=== PATIENT | female | born 1970 | race Caucasian/White ===

== ENCOUNTER → 2018-09-28 17:07 | Outpatient (CLI) | payer OTHER, MEDICAID, SELFPAY ==
[2018-09-28 18:07] LABS: Add Manual Diff / Slide Review NO; Basophils Percent Auto 1.1 % (0-2); Eosinophils Percent Auto 1.9 % (2-4); Hematocrit 39.5 % (36-46); Hemoglobin 13.1 g/dL (12.0-16.0); Lymphocytes Percent Auto 35.5 % (25-40); Mean Corpuscular HGB Conc 33.2 % (30-36); Mean Corpuscular Hemoglobin 31.1 PG (26-34); Mean Corpuscular Volume 93.8 fL (80-100); Monocytes Percent Auto 6.1 % (3-14); Neutrophils Absolute Auto 4000 /uL (1500-7000); Neutrophils Percent Auto 55.4 % (50-75); Platelet Count 251 X10^3/uL (150-400); Red Blood Cell Count 4.21 X10^6/uL (4.0-5.2); Red Cell Distribution Width 13.6 % (11.6-14.8); White Blood Cell Count 7.3 X10^3/uL (4.5-11.0)
[2018-09-28 18:29] LABS: HEMOLYSIS < 15 (0-50); Iron 97 ug/dL (37-170)
[2018-09-28 18:31] LABS: Alanine Aminotransferase 40 IU/L (9-52); Albumin 4.9 g/dL (3.5-5.0); Albumin Globulin Ratio 1.6 (1.0-2.8); Alkaline Phosphatase 68 U/L (38-126); Aspartate Aminotransferase 36 IU/L (14-36); BUN Creatinine Ratio 17.8 (6-22); Bilirubin Total 0.3 mg/dL (0.2-1.3); Blood Urea Nitrogen 16 mg/dL (7-17); Calcium 9.9 mg/dL (8.4-10.2); Carbon Dioxide 32 mmol/L (22-32); Chloride 96 mmol/L (98-107); Estimated Glomerular Filt Rate > 60.0 mL/min (>60); Glucose 71 mg/dL (70-100); HEMOLYSIS < 15 (0-50); Potassium 4.1 mmol/L (3.4-5.1); Sodium 137 mmol/L (137-145); Total Protein 7.9 g/dL (6.3-8.2)
[2018-09-28 18:42] LABS: Percent Iron Saturation 34 % (15-50); Total Iron Binding Capacity 289 ug/dL (265-497); Transferrin 246 mg/dL (206-381)
[2018-09-28 18:48] LABS: Free T4, Direct Thyroxine 0.08 ng/dL (0.78-2.19)
[2018-09-28 19:21] LABS: Vitamin B12 626 pg/mL (239-931)
== END ==
PROVIDERS: PCP Physician Assistant; Visit Provider Physician Assistant
DX: E03.9 Hypothyroidism, unspecified (principal); M25.50 Pain in unspecified joint; R53.83 Other fatigue; R63.4 Abnormal weight loss
CPT/HCPCS: 36415; 80053; 82607; 82728; 83540; 83550; 84439; 84443; 85025

== ENCOUNTER → 2018-11-21 11:59 | Outpatient (CLI) | payer OTHER, MEDICAID, SELFPAY ==
[2018-11-21 13:22] LABS: Thyroid Stimulating Hormone 1.09 uIU/mL (0.47-4.68)
== END ==
PROVIDERS: PCP Physician Assistant; Visit Provider Physician Assistant
DX: E03.9 Hypothyroidism, unspecified (principal); R79.89 Other specified abnormal findings of blood chemistry
CPT/HCPCS: 36415; 84443

== ENCOUNTER → 2018-11-24 11:18 | Outpatient (CLI) | payer OTHER, MEDICAID, SELFPAY ==
--- NOTE | 2018-11-24 11:18 | DI.US.S_ITS ---
PROCEDURE: US PELVIC COMPLETE INDICATIONS: Post menopausal bleeding; hx of breast cancer TECHNIQUE: Real-time scanning was performed of the pelvic organs, with image documentation. Additional endovaginal scanning was necessary due to incomplete visualization of the adnexal and endometrial structures by transabdominal scanning. COMPARISON: None. FINDINGS: Transabdominal scanning: Limited scanning through the kidneys shows no hydronephrosis. No pathologic free abdominal or pelvic fluid. Within the right posterior myometrium a 1.1 x 1.8 x 2.0 cm mildly heterogeneous ovoid mass consistent with fibroid is noted. Endovaginal scanning: Uterus: Uterus is normal in size at 3.8 x 5.6 x 7.8 cm, anteverted. The endometrium measures 4.7 mm in combined thickness. Within the endometrial lining area there is a finding of low-level internal echoes that appear homogeneous, without internal vascularity. A discrete mass is not associated. Ovaries: Right ovary measures 2.4 x 0.8 x 1.0 and the left measures 2.2 x 1.3 x 2.1 cm with what appears to be a left ovarian cyst measuring 0.9 x 1.5 x 2.1 cm. IMPRESSION: The endometrial lining thickness of 5 mm is complicated by what appears to be low-level internal echoes throughout the endometrial space, without visualized polypoid mass, or internal vascularity. This is potentially unusually homogeneous debris within the endometrial canal is given the history of postmenopausal bleeding gynecological consultation and consideration of biopsy is recommended. Incidental lobe is made of what appears to be a posterior right-sided 2.0 cm maximal dimension fibroid. Dictated by: Eric Mcelroy M.D. on 11/24/2018 at 12:23 Approved by: Eric Mcelroy M.D. on 11/24/2018 at 12:34
== END ==
PROVIDERS: PCP Physician Assistant; Visit Provider Physician Assistant
DX: N95.0 Postmenopausal bleeding (principal); R10.2 Pelvic and perineal pain; Z85.3 Personal history of malignant neoplasm of breast
CPT/HCPCS: 76856

== ENCOUNTER 2019-01-25 06:23 | Day surgery (SDC) | payer OTHER, SELFPAY ==
[2019-01-09 07:43] VITALS: BMI 19.6
[2019-01-25] VITALS (10 sets, daily range): BP systolic 85–117; BP diastolic 45–77; PULSE 44–53; RESP 10–18; TEMP 36.2–36.6; O2SAT 90–100; BMI 19.6
--- NOTE | 2019-01-25 | PATH_ITS ---
[facility] Accession Number: [id number] . 01 Material submitted: . endometrium - ENDOMETRIAL CURRETTINGS . 02 Diagnosis: Endometrial Curettings: Very scant portions of endometrial glandular epithelium. Please see comment. Avulsed portions of squamous mucosa with reactive features; negative for squamous dysplasia and malignancy. [facility]/01/29/2019 . 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 Additional sampling could be considered, if clinically appropriate. There is no evidence of glandular hyperplasia, cytologic atypia or malignancy in these scant tissue fragments. . 02 Electronically signed: . Taina Craig MD, Pathologist NPI- [id number] . 01 Gross description: . ENDOMETRIAL CURRETTINGS: Received in formalin are minute fragments of mucoid and hemorrhagic material measuring 0.2 x 0.2 x 0.1 cm in aggregate. Submitted in toto in 1 cassette. /CKI /CKI . 02 Pathologist provided ICD-10: N85.00 . 02 CPT . 869957 Performed at: 01 [facility] [address], [place], [place] [id number] MD Scooby Carmona MD Phone: [phone] Performed at: 02 [facility] [address] [place], [place] [id number] MD Carmina Tong MD Phone: [phone]
[2019-01-25] MEDS: LACTATED RINGERS 1,000 ML 42 ML IV (07:43)
--- NOTE | 2019-01-25 07:45 | PM.PREOP ---
Pre-operative Note Interval Note History & Physical reviewed/Exam performed by Physician: Yes Changes to H&P: No
--- NOTE | 2019-01-25 07:46 | PM.HP.1 ---
History of Present Illness Date Patient Seen: 01/25/19 Time Patient Seen: 07:46 Chief complaint: [id number] Narrative: Patient is a 48-year-old with postmenopausal bleeding here for a D&C hysteroscopy Patient History Medical History (Updated 01/24/19 @ 12:31 by Eleonora Camacho PA-C) Acne (Chronic ~1984) Anxiety (Chronic ~2015) Atrial fibrillation (Chronic ~2006) Bipolar disorder (Chronic) Breast cancer (Chronic ~2013) Chronic back pain (Chronic ~2000) Headache (Chronic ~2014) History of urinary incontinence (Chronic ~2017) Hypothyroidism (Chronic ~2004) Irritable bowel syndrome (Chronic ~2000) Post traumatic stress disorder (PTSD) (Chronic ~2014) Seasonal allergies (Chronic ~1981) Shoulder pain (Chronic ~2014) Vision disorder (Chronic) Surgical History (Updated 10/07/18 @ 20:26 by Emmy Romero) Anesthesia (Resolved) History of partial mastectomy (Resolved ~06/26/16) History of repair of rotator cuff (Resolved ~04/2014) History of tubal ligation (Resolved ~08/26/95) Family History (Updated 10/07/18 @ 20:34 by Emmy Romero) Father Cancer Mother Atrial fibrillation Heart disease Brother Heart disease Hypertension Stroke Sister Heart disease Mental health problem Grandmother Heart disease Grandmother No problems noted. Social History household members: spouse Smoking Status: Current every day smoker Tobacco: How many years used: 32 quit status: considering quitting second hand exposure: Yes alcohol intake: former substance use type: marijuana Family & Social History Family History (Updated 10/07/18 @ 20:34 by Emmy Romero) Father Cancer Mother Atrial fibrillation Heart disease Brother Heart disease Hypertension Stroke Sister Heart disease Mental health problem Grandmother Heart disease Grandmother No problems noted. Social History: household members spouse Tobacco & Substance use: Smoking Status Current every day smoker alcohol intake former Substance Use Type marijuana Meds Home Medications Medication Instructions Recorded Confirmed Type Supplement List (Scanned 09/28/18) PO 09/28/18 01/24/19 History Synthroid 112 mcg tablet 112 mcg PO DAILY #45 tab NS 09/29/18 01/25/19 Rx benzoyl peroxide 4 % topical 1 applictn TOP DAILY #204 gram 10/04/18 01/24/19 Rx cleanser esomeprazole magnesium 20 mg 20 mg PO DAILY PRN #30 cap 01/24/19 Rx capsule,delayed release tramadol 50 mg tablet See Rx Instructions PO TID PRN #45 01/24/19 01/25/19 Rx tab Allergies Allergy/AdvReac Type Severity Reaction Status Date / Time iodine Allergy Intermediate Swollen Verified 01/24/19 12:02 gums and skin Exam Vital Signs (past 8 hours): - 01/25/19 07:15 Temperature 97.6 F Pulse Rate 52 L Respiratory Rate 16 Blood Pressure 103/77 Pulse Oximetry 100 Oxygen Delivery Method Room Air Narrative Exam Narrative: HEENT: No thyromegaly, no anterior cervical or supraclavicular lymphadenopathy. Lungs:Clear to auscultation bilaterally, no wheezes. Cardiovascular: Regular rate and rhythm, no murmurs, rubs, or gallops. Abdomen: Well-healed infraumbilical scar. No hepatosplenomegaly. No masses palpable. External genitalia: Normal Vagina: Normal Cervix: Normal Bimanual exam: 6 Week size uterus. Mobile. Rectal: No masses. Assessment & Plan Assessment & Plan narrative: Assessment: 48-year-old with postmenopausal bleeding Plan: D&C hysteroscopy The risks, benefits, and alternatives to the procedure were explained to the patient. The risks including bleeding, infection, and uterine perforation. She understands these risks and agrees to proceed. A full PAR-Q was held and consent form was signed Time Spent With Patient Time with patient: less than 15 minutes
--- NOTE | 2019-01-25 08:20 | SUR.OPER ---
Lithotomy on padded OR bed, head on pillow, arms secured on padded arm boards at <90 degrees abduction. Legs secured in padded yellow fins stirrups.
[2019-01-25] MEDS: KETOROLAC 30 MG/ML VIAL IV (08:57)
[2019-01-25] MEDS: HYDROCODONE/ACET 5/325 TABLET 1 TAB PO (09:07)
--- NOTE | 2019-01-25 09:15 | SUR.PHASEI ---
Pt has bradycardia (HR 45-50) and respirations 10-12, therefore no IV narcotics given, IV toradol and PO Foster given. Pt said she agreed with this plan. Meanwhile, hot blankets were applied to her abdomen.
--- NOTE | 2019-01-25 09:51 | SUR.PHASEII ---
tolerating coffee, taling with friend
--- NOTE | 2019-01-25 15:04 | PM.GYNOP.1 ---
Operative Date/Time/Diagnoses Date of procedure: 01/25/19 Time of procedure: 08:50 Pre-op diagnosis: Postmenopausal bleeding History of breast cancer Post-op diagnosis: same Procedure: Procedures Operation Date: 01/25/19 07:45 Actual Procedures Side Surgeon p Hysteroscopy D&C Adeline Rai MD Indications: Postmenopausal bleeding History of breast cancer Surgeon: Adeline Rai Anesthesia Type: General (LMA) Operative Notes Findings: Six week size anteverted uterus Both fallopian tube ostia observed No polyps or fibroids Closure Type: not applicable Specimen(s): endometrial curettings Estimated blood loss (mL): 5 Blood products transfused: none Procedure in detail: After informed consent was obtained, the patient was taken to the operating room where she was placed in the dorsal supine position. After adequate LMA general anesthesia was achieved, she was placed in the dorsal lithotomy position, and prepped and draped in the usual sterile fashion. A bivalve speculum was placed into the vagina and the anterior lip of the cervix grasped with a single-tooth tenaculum. Cervical os was sequentially dilated to the # 7 Hegar dilator. The hysteroscope passed easily into the endometrial cavity. Both fallopian tube ostia were observed. There were no polyps or fibroids visualized. The hysteroscope was removed. Gentle sharp curettage was performed yielding a small amount of endometrial curettings. The curette was removed from the uterus. The single-tooth tenaculum was removed from the anterior lip of the cervix. The bivalve speculum was removed from the vagina. Sponge, lap, and instrument counts were correct x2. The patient tolerated the procedure well, and was taken to PACU in stable condition. Complications: none Post-operative Condition: stable Disposition: PACU Plan for aftercare: Home after recovery
[2023-04-12 10:52] VITALS: BMI 23.2
== END 2019-01-25 10:11 | disposition home or self-care (01) ==
PROVIDERS: PCP Physician Assistant; Visit Provider Obstetrics & Gynecology
PROC: 0UDB8ZZ Extraction of Endometrium, Via Natural or Artificial Opening Endoscopic (ICD-10-PCS; CPT 58558; principal; 2019-01-25 07:45)
DX: N85.00 Endometrial hyperplasia, unspecified (principal); N95.0 Postmenopausal bleeding; F41.9 Anxiety disorder, unspecified; I48.91 Unspecified atrial fibrillation
CPT/HCPCS: 58558; J1100; J1885; J2250; J2405; J2704; J3010

== ENCOUNTER → 2019-03-12 08:30 | Outpatient (CLI) | payer OTHER, SELFPAY ==
--- NOTE | 2019-03-12 08:31 | DI.US.S_ITS ---
LIMITED ULTRASOUND OF RIGHT BREAST: 03/12/2019 CLINICAL: Palpable right breast lump. Comparison is made to exams dated: 03/12/2019 mammogram - [facility], 05/07/2016 mammogram, and 01/29/2015 breast MRI - [facility]. Color flow and real-time ultrasound of the right breast 5-6 o'clock region were performed. Caputo scale images of the real-time examination were reviewed. There is 0.4 cm x 0.3 cm x 0.4 cm wider than tall, oval cyst in the right breast at 5 o'clock middle depth. This oval cyst displays posterior acoustic enhancement. This correlates as palpated and with mammography findings. Color flow imaging demonstrates that there is no increase in vascularity. IMPRESSION: PROBABLY BENIGN The 0.4 cm x 0.3 cm x 0.4 cm cyst in the right breast most likely is a complicated cyst or a sebaceous cyst and is probably benign. A follow-up ultrasound in 6 months is recommended to demonstrate stability. Findings and recommendations were conveyed to the patient at time of exam. This exam was interpreted at Station ID: [id number]. Electronically Signed By: Arin calvillo/:03/12/2019 10:23:09 letter sent: Followup Recommended Ultrasound BI-RADS: 3 Probably benign
--- NOTE | 2019-03-12 08:31 | DI.MG.S_ITS ---
UNILATERAL RIGHT DIGITAL DIAGNOSTIC MAMMOGRAM 3D/2D POST MASTECTOMY: 03/12/2019 CLINICAL: Right breast lump. Comparison is made to exams dated: 05/07/2016 mammogram, 01/21/2015 mammogram, 01/07/2015 mammogram, and 10/26/2012 mammogram - [facility]. The tissue of right breast is extremely dense, which lowers the sensitivity of mammography. There is a 3 mm round asymmetry with an obscured margin in the right breast at 5 o'clock middle depth. This correlates as palpated. No other significant masses or calcifications are seen in the right breast. IMPRESSION: INCOMPLETE: NEEDS ADDITIONAL IMAGING EVALUATION The 3 mm round asymmetry in the right breast is indeterminate. An ultrasound is recommended. This was performed immediately following this exam. This exam was interpreted at Station ID: [id number]. NOTE: For mammograms, a report in lay terms will be sent to the patient. Approximately 15% of breast malignancies will not be visualized mammographically. In the management of a palpable breast mass, a negative mammogram must not discourage biopsy of a clinically suspicious lesion. Electronically Signed By: Arin calvillo/:03/12/2019 09:10:25 ACR BI-RADS Category 0: Incomplete [id number]
== END ==
PROVIDERS: PCP Physician Assistant; Visit Provider Physician Assistant
DX: R92.8 Other abnormal and inconclusive findings on diagnostic imaging of breast (principal); N60.01 Solitary cyst of right breast
CPT/HCPCS: 76642; 77065; G0279

== ENCOUNTER → 2019-04-09 07:19 | Outpatient (CLI) | payer OTHER, SELFPAY ==
[2019-04-09 08:34] LABS: Cholesterol 172 mg/dL (140-199); HDL Cholesterol 68 mg/dL (40-60); LDL Cholesterol Calculated 91 mg/dL (<100); Triglycerides 64 mg/dL (35-150)
== END ==
PROVIDERS: PCP Physician Assistant; Visit Provider Physician Assistant
DX: Z13.220 Encounter for screening for lipoid disorders (principal); Z13.6 Encounter for screening for cardiovascular disorders
CPT/HCPCS: 36415; 80061

== ENCOUNTER → 2019-05-13 17:42 | Outpatient (CLI) | payer OTHER, SELFPAY ==
--- NOTE | 2019-05-13 17:44 | DI.RAD.S_ITS ---
PROCEDURE: XR LUMBAR SPINE 2-3V INDICATIONS: Low back pain with daily left labial/inguinal pain; TECHNIQUE: 3 views of the lumbar spine were acquired. COMPARISON: None. FINDINGS: Bones: 5 [id number] vertebrae are present. There is normal bony alignment. No vertebral body compression fractures. No suspicious bony lesions. Soft tissues: Overlying bowel gas pattern is normal. No suspicious soft tissue calcifications. IMPRESSION: Normal lumbar spine. Dictated by: Arin Monreal M.D. on 05/13/2019 at 19:11 Approved by: Arin Monreal M.D. on 05/13/2019 at 19:19
== END ==
PROVIDERS: PCP Physician Assistant; Visit Provider Physician Assistant
DX: M54.5 Low back pain (principal); R10.32 Left lower quadrant pain
CPT/HCPCS: 72100

== ENCOUNTER → 2019-10-11 08:22 | Outpatient (CLI) | payer SELFPAY ==
[2019-10-11 09:10] LABS: Alanine Aminotransferase 16 IU/L (<35); Albumin 4.9 g/dL (3.5-5.0); Albumin Globulin Ratio 1.5 (1.0-2.8); Alkaline Phosphatase 85 U/L (38-126); Aspartate Aminotransferase 21 IU/L (14-36); BUN Creatinine Ratio 28.8 (6-22); Bilirubin Total 0.3 mg/dL (0.2-1.3); Blood Urea Nitrogen 23 mg/dL (7-17); Calcium 10.3 mg/dL (8.4-10.2); Carbon Dioxide 29 mmol/L (22-32); Chloride 101 mmol/L (98-107); Cholesterol 227 mg/dL (140-199); Estimated Glomerular Filt Rate > 60.0 mL/min (>60); Globulin 3.2 g/dL (1.7-4.1); Glucose 95 mg/dL (70-100); HDL Cholesterol 87 mg/dL (40-60); HEMOLYSIS 17 (0-50); LDL Cholesterol Calculated 125 mg/dL (<100); Potassium 4.5 mmol/L (3.4-5.1); Sodium 140 mmol/L (137-145); Total Protein 8.1 g/dL (6.3-8.2); Triglycerides 76 mg/dL (35-150)
[2019-10-11 09:40] LABS: Thyroid Stimulating Hormone 1.65 uIU/mL (0.47-4.68)
== END ==
PROVIDERS: PCP Physician Assistant; Visit Provider Physician Assistant
DX: E03.9 Hypothyroidism, unspecified (principal); Z13.220 Encounter for screening for lipoid disorders; Z13.6 Encounter for screening for cardiovascular disorders
CPT/HCPCS: 36415; 80053; 80061; 84443

== ENCOUNTER 2020-01-09 09:59 | Emergency (ER) | payer OTHER, SELFPAY ==
[2020-01-09 10:00] VITALS: BP 143/82; PULSE 101; RESP 18; TEMP 36.8; O2SAT 96
[2020-01-09] MEDS: MAGNESIUM HYDROXIDE 30 ML UDC PO (10:27)
[2020-01-09] MEDS: LIDOCAINE VISCOUS 2% 15 ML SOLUTION PO (10:27)
--- NOTE | 2020-01-09 10:39 | ED.DENTAL ---
HPI - Dental/Oral General Chief complaint: Dental/Oral Stated complaint: Tooth broke rt side Time Seen by Provider: 01/09/20 10:10 Source: patient Mode of arrival: Ambulatory Limitations: no limitations History of Present Illness HPI Narrative: Patient complains of dental pain at tooth 28. This is chronic. Ongoing for 5 years. Worsening in the past 2 weeks. Patient is a smoker. No history of diabetes. No drooling. No tongue elevation. No malocclusion or trismus. Teeth map: 1. Chronic fracture of tooth. No surrounding edema erythema. Mild tenderness to touch. No gum palpable abscess. No cheek or oral swelling. Duration: constant Severity: moderate Exacerbating factors: chewing and drinking fluids Context: history of dental caries Related Data Home Medications Medication Instructions Recorded Confirmed Supplement List (Scanned 09/28/18) PO 09/28/18 03/20/19 estradiol 1 vaginalrin VAG [id number] 03/20/19 03/20/19 Previous Rx's Medication Instructions Recorded esomeprazole magnesium 20 mg 20 mg PO DAILY PRN #30 cap 06/15/19 capsule,delayed release Synthroid 112 mcg tablet See Rx Instructions .ROUTE 09/27/19 .COMPLEX #30 tab NS tramadol 50 mg tablet 50 mg PO BID PRN #60 tab 11/28/19 ibuprofen 600 mg PO Q6H PRN #24 tab 01/09/20 penicillin V potassium 500 mg PO QID #28 tab 01/09/20 Allergies Allergy/AdvReac Type Severity Reaction Status Date / Time iodine Allergy Intermediate Swollen Unverified 05/14/19 13:24 gums and skin Review of Systems Review of Systems Narrative: GENERAL: Denies chills, fatigue, malaise, fever, sweats. HEENT: Denies sinus pain, ear pain, sore throat, difficulty swallowing, dizziness. Complains of toothache RESPIRATORY: Denies dyspnea, cough, wheezing, hemoptysis, sputum. CARDIOVASCULAR: Denies chest pain, palpitations, orthopnea, edema, GASTROINTESTINAL: Denies nausea, vomiting, abdominal pain, diarrhea, constipation, melena. MUSCULOSKELETAL: denies weakness, joint pain, or bony pain SKIN: Denies rash, skin lesions, or other NEUROLOGIC: Denies weakness, headache, numbness, change in speech, confusion, seizures, incoordination. PSYCHIATRIC: No concerning psychosocial issues. 12 point review of systems is negative except for those stated above Patient History Medical History Acne (Chronic ~1984) Anxiety (Chronic ~2015) Atrial fibrillation (Chronic ~2006) Bipolar disorder (Chronic) Breast cancer (Chronic ~2013) Chronic back pain (Chronic ~2000) Headache (Chronic ~2014) History of urinary incontinence (Chronic ~2017) Hypothyroidism (Chronic ~2004) Irritable bowel syndrome (Chronic ~2000) Post traumatic stress disorder (PTSD) (Chronic ~2014) Seasonal allergies (Chronic ~1981) Shoulder pain (Chronic ~2014) Vision disorder (Chronic) Surgical History Anesthesia (Resolved) History of partial mastectomy (Resolved ~06/26/16) History of repair of rotator cuff (Resolved ~04/2014) History of tubal ligation (Resolved ~08/26/95) Family History Father Cancer Mother Atrial fibrillation Heart disease Brother Heart disease Hypertension Stroke Sister Heart disease Mental health problem Grandmother Heart disease Grandmother No problems noted. Social History household members: spouse Smoking Status: Current every day smoker Tobacco: How many years used: 32 quit status: considering quitting second hand exposure: Yes alcohol intake: former substance use type: marijuana Smoking Status: Current every day smoker Substance Use Type: marijuana Exam Narrative Exam Narrative: Mild tenderness to tooth 28. No surrounding gum erythema or edema. No palpable abscess. No cheek erythema or edema. No trismus or malocclusion. No drooling not toxic. Not distended. No acute distress. Initial Vital Signs Initial Vital Signs: Vital Signs Temperature 98.2 F 01/09/20 10:00 Pulse Rate 101 H 01/09/20 10:00 Respiratory Rate 18 01/09/20 10:00 Blood Pressure 143/82 H 01/09/20 10:00 Pulse Oximetry 96 01/09/20 10:00 HENMT Mouth: lip normal, tongue normal, No drooling, No malodorous breath, No muffled voice, No abnormal TMJ, No trismus and No restricted motion Teeth and gingiva: gingiva normal, poor dentition and other (Mild tenderness to tooth 28. There is no surrounding gum edema. ) Course Course Course Narrative: Dental ball and pen VK given here. Orders Ordered: Discontinued Medications Lidocaine HCl (Viscous Lidocaine 2%) 15 ml PO NOW ONE Stop: 01/09/20 10:19 Last Admin: 01/09/20 10:27 Dose: 15 ml Documented by: BTONER Magnesium Hydroxide (Milk Of Magnesia) 30 ml PO NOW ONE Stop: 01/09/20 10:19 Last Admin: 01/09/20 10:27 Dose: 30 ml Documented by: BTONER Penicillin V Potassium (Veetids) 500 mg PO NOW ONE Stop: 01/09/20 10:34 Last Admin: 01/09/20 11:21 Dose: 500 mg Documented by: BTONER Vital Signs Vital signs: Vital Signs - 8 hr 01/09/20 10:00 Temperature 98.2 F Pulse Rate 101 H Respiratory Rate 18 Blood Pressure 143/82 H Pulse Oximetry 96 MDM - Dental/Oral Differential Diagnosis Differential diagnosis: Likely dental caries and fracture of tooth Medical Records Attestation: I reviewed the patient's medical records. Discharge Plan Departure Patient Disposition: Home Clinical Impression: Dental caries, Toothache Instructions: Tooth Decay, How to Quit Smoking, Tooth Fracture Activity Restrictions/Additional Instructions: Called provided office today to be seen within next 2 weeks. Stop smoking. Return if worse. Remove dental ball in 2 hours. Prescriptions: New penicillin V potassium 500 mg tablet 500 mg PO QID Qty: 28 RF: 0 ibuprofen 600 mg tablet 600 mg PO Q6H PRN (Reason: fever or pain) Qty: 24 RF: 0 No Action Supplement List (Scanned 09/28/18) PO RF: 0 esomeprazole magnesium 20 mg capsule,delayed release(DR/EC) 20 mg PO DAILY PRN (Reason: reflux) Qty: 30 RF: 1 levothyroxine [Synthroid] 112 mcg tablet See Rx Instructions .ROUTE .COMPLEX Qty: 30 RF: 0 tramadol 50 mg tablet 50 mg PO BID PRN (Reason: pain) Qty: 60 RF: 0 Estring 2 mg (7.5 mcg /24 hour) ring 1 vaginalrin VAG [id number] RF: 0 Referrals: Lev Solomon DMD [Physician] - Eleonora Camacho PA-C [Primary Care Provider] -
[2020-01-09] MEDS: PENICILLIN VK 250 MG TABLET 500 MG PO (11:21)
--- NOTE | 2020-01-09 12:33 | PC.NURSE ---
removed medicated cotton from pt mouth at 1145.
[2020-01-09 12:35] VITALS: BP 127/70; PULSE 88; RESP 16; O2SAT 100
== END 2020-01-09 12:35 | disposition home or self-care (01) ==
PROVIDERS: Emergency Provider Emergency Medicine; PCP Physician Assistant
DX: K02.9 Dental caries, unspecified (principal); K08.89 Other specified disorders of teeth and supporting structures
CPT/HCPCS: 99283

== ENCOUNTER → 2020-10-24 10:51 | Outpatient (CLI) | payer OTHER, SELFPAY ==
--- NOTE | 2020-10-24 10:54 | DI.RAD.S_ITS ---
PROCEDURE: XR LUMBAR SPINE 2-3V INDICATIONS: Progressive lower back pain TECHNIQUE: 3 views of the lumbar spine were acquired. COMPARISON: [facility], CR, XR LUMBAR SPINE 2-3V, 05/13/2019, 17:46. FINDINGS: Bones: 5 [id number] vertebrae are present. There is normal bony alignment. No vertebral body compression fractures. No suspicious bony lesions. Soft tissues: Overlying bowel gas pattern is normal. No suspicious soft tissue calcifications. IMPRESSION: No trauma found, facet osteoarthritis appears mild at L4-5 and L5-S1. Note: Over the lower left lung the technologist reported that rocks were being carried in garment. Dictated by: Eric Mcelroy M.D. on 10/24/2020 at 12:51 Approved by: Eric Mcelroy M.D. on 10/24/2020 at 12:53
[2020-10-24 11:26] LABS: Add Manual Diff / Slide Review NO; Basophils Absolute Auto 0 /uL (0-100); Basophils Percent Auto 0.7 % (0-2); Eosinophils Absolute Auto 100 /uL (0-450); Eosinophils Percent Auto 2.4 % (2-4); Hematocrit 38.9 % (36-46); Hemoglobin 13.1 g/dL (12.0-16.0); Lymphocytes Absolute Auto 1700 /uL (1100-4500); Lymphocytes Percent Auto 37.5 % (25-40); Mean Corpuscular HGB Conc 33.5 % (30-36); Mean Corpuscular Hemoglobin 30.4 PG (26-34); Mean Corpuscular Volume 90.8 fL (80-100); Monocytes Absolute Auto 400 /uL (0-900); Neutrophils Absolute Auto 2300 /uL (1500-7000); Neutrophils Percent Auto 51.4 % (50-75); Platelet Count 235 X10^3/uL (150-400); Red Blood Cell Count 4.29 X10^6/uL (4.0-5.2); Red Cell Distribution Width 13.2 % (11.6-14.8); White Blood Cell Count 4.4 X10^3/uL (4.5-11.0)
[2020-10-24 11:38] LABS: Alanine Aminotransferase 19 IU/L (<35); Albumin 4.7 g/dL (3.5-5.0); Albumin Globulin Ratio 1.5 (1.0-2.8); Alkaline Phosphatase 83 U/L (38-126); Aspartate Aminotransferase 26 IU/L (14-36); BUN Creatinine Ratio 25.8 (6-22); Bilirubin Total 0.2 mg/dL (0.2-1.3); Blood Urea Nitrogen 17 mg/dL (7-17); Calcium 9.6 mg/dL (8.4-10.2); Carbon Dioxide 34 mmol/L (22-32); Chloride 104 mmol/L (98-107); Estimated Glomerular Filt Rate > 60.0 mL/min (>60); Globulin 3.2 g/dL (1.7-4.1); Glucose 86 mg/dL (70-100); HEMOLYSIS < 15 (0-50); Potassium 4.5 mmol/L (3.4-5.1); Sodium 140 mmol/L (137-145); Total Protein 7.9 g/dL (6.3-8.2)
[2020-10-24 12:15] LABS: Free T4, Direct Thyroxine 1.49 ng/dL (0.78-2.19)
[2020-10-24 12:29] LABS: Thyroid Stimulating Hormone 0.022 uIU/mL (0.47-4.68)
== END ==
PROVIDERS: PCP Family Medicine; Referring Provider Family Medicine; Visit Provider Family Medicine
DX: M54.5 Low back pain (principal); E03.9 Hypothyroidism, unspecified; R00.2 Palpitations; G89.29 Other chronic pain
CPT/HCPCS: 36415; 72100; 80053; 84439; 84443; 85025

== ENCOUNTER → 2020-10-29 09:47 | Outpatient (CLI) | payer OTHER, SELFPAY ==
--- NOTE | 2020-11-26 11:14 | P.HOLT.S_ITS ---
[employer] Report Referral & Results Date Patient Seen: 10/29/20 Requesting provider: Johny Dewitt Indication: Palpitations Duration of monitoring (days): 12 Diary information: There 10 patient triggered events and 10 patient diary entries All 20 of these patient events were associated with (within 45 seconds) sinus rhythm, PVCs, PACs, and SVT Data: Minimum heart rate identified was 37 beats per minute at 06:13 a.m. on 11/06/2020 Maximum sinus heart rate was 147 beats per minute at 07:25 on 11/03/2020 Maximum overall heart rate was 171 beats per minute at 17:51 on 10/30/2020 during a 5 beat run of SVT Less than 1% of identified beats rather ventricular supraventricular ectopic in origin There were 4 runs of SVT the fastest being the 5 run episode listed above the longest lasting 12 beats at a rate of 125 beats per minute. Impression: This study demonstrates rare PVCs rare PACs and very rare episodes of SVT very brief in duration. No correlation with any one particular dysrhythmia as a source of possible sense of palpitations was identified on this study as patient patient events were associated with a variety of dysrhythmias as above. Clinical correlation suggested
== END ==
PROVIDERS: PCP Family Medicine; Referring Provider Family Medicine; Visit Provider Family Medicine
DX: R00.2 Palpitations (principal)
CPT/HCPCS: 93246; 93248

== ENCOUNTER → 2020-12-17 14:35 | Outpatient (CLI) | payer OTHER, SELFPAY ==
--- NOTE | 2020-12-17 14:37 | DI.RAD.S_ITS ---
PROCEDURE: XR FOOT LT MIN 3V INDICATIONS: Painful left foot TECHNIQUE: 3 views of the foot were acquired. COMPARISON: None. FINDINGS: Bones: No fractures or dislocations. No suspicious bony lesions. Soft tissues: No tibiotalar joint effusion. Achilles tendon appears normal. IMPRESSION: No trauma. Dictated by: Eric Mcelroy M.D. on 12/17/2020 at 15:29 Approved by: Eric Mcelroy M.D. on 12/17/2020 at 15:29
== END ==
PROVIDERS: PCP Family Medicine; Referring Provider Family Medicine; Visit Provider Family Medicine
DX: S90.122A Contusion of left lesser toe(s) without damage to nail, initial encounter (principal); S90.32XA Contusion of left foot, initial encounter; X58.XXXA Exposure to other specified factors, initial encounter
CPT/HCPCS: 73630

== ENCOUNTER → 2021-05-01 19:32 | Outpatient (CLI) | payer OTHER, SELFPAY ==
[2021-05-01 20:44] LABS: COVID19 -Nasal RAPID Negative (Negative)
== END ==
PROVIDERS: PCP Family Medicine; Visit Provider Physician Assistant
DX: J31.2 Chronic pharyngitis (principal); Z20.822 Contact with and (suspected) exposure to COVID-19
CPT/HCPCS: 87070; 87635

== ENCOUNTER → 2021-07-14 13:31 | Outpatient (CLI) | payer OTHER, SELFPAY ==
--- NOTE | 2021-07-14 13:35 | DI.RAD.S_ITS ---
PROCEDURE: XR LUMBAR SPINE 2-3V INDICATIONS: Progressive lower back pain after fall TECHNIQUE: 2 views of the lumbar spine were acquired. COMPARISON: [facility], CR, XR LUMBAR SPINE 2-3V, 10/24/2020, 12:07. FINDINGS: Bones: 5 [id number] vertebrae are present. Mild facet arthrosis at L5-S1. There is normal bony alignment. No vertebral body compression fractures. No suspicious bony lesions. Soft tissues: Overlying bowel gas pattern is normal. No suspicious soft tissue calcifications. IMPRESSION: No acute osseous abnormality. Dictated by: Dmitry Felder M.D. on 07/14/2021 at 15:00 Approved by: Dmitry Felder M.D. on 07/14/2021 at 15:01
[2021-07-14 14:56] LABS: Alanine Aminotransferase 43 IU/L (<35); Albumin 4.4 g/dL (3.5-5.0); Albumin Globulin Ratio 1.7 (1.0-2.8); Alkaline Phosphatase 83 U/L (38-126); Aspartate Aminotransferase 39 IU/L (14-36); BUN Creatinine Ratio 18.1 (6-22); Bilirubin Total 0.1 mg/dL (0.2-1.3); Blood Urea Nitrogen 15 mg/dL (7-17); Calcium 9.5 mg/dL (8.4-10.2); Carbon Dioxide 31 mmol/L (22-32); Chloride 101 mmol/L (98-107); Estimated Glomerular Filt Rate > 60.0 mL/min (>60); Globulin 2.6 g/dL (1.7-4.1); Glucose 97 mg/dL (70-100); HEMOLYSIS < 15 (0-50); Potassium 4.3 mmol/L (3.4-5.1); Sodium 140 mmol/L (137-145)
[2021-07-14 15:24] LABS: Thyroid Stimulating Hormone 0.276 uIU/mL (0.47-4.68)
== END ==
PROVIDERS: PCP Family Medicine; Referring Provider Family Medicine; Visit Provider Family Medicine
DX: M54.50 Low back pain, unspecified (principal); E03.9 Hypothyroidism, unspecified
CPT/HCPCS: 36415; 72100; 80053; 84439; 84443

== ENCOUNTER → 2021-12-25 17:57 | Outpatient (CLI) | payer OTHER, SELFPAY ==
--- NOTE | 2021-12-25 17:58 | DI.MRI.S_ITS ---
PROCEDURE: MR LUMBAR SPINE WO CON INDICATIONS: Low back pain with left-sided radiculopathy. TECHNIQUE: Noncontrast sagittal T1 spin echo and T2 fast echo, sagittal STIR, and T2 fast spin echo through the lumbar spine. In cases with scoliosis, additional coronal T2 fast spin echo may be performed. COMPARISON: None. FINDINGS: Image quality: Excellent. Alignment and Curvature: There is normal bony alignment. Bone Marrow: Marrow is of normal overall signal. No acute vertebral body compression fractures. Spinal Cord: Conus medullaris terminates at the L1 level. Visualized cord demonstrates normal signal and size. Paraspinous Soft Tissues: No paravertebral masses. At the disc levels, there is no disc bulge, central or foraminal stenosis. IMPRESSION: Normal MRI of the lumbar spine Approved by: Trenton Escobar M.D. on 12/26/2021 at 17:28
== END ==
PROVIDERS: PCP Family Medicine; Referring Provider Family Medicine; Visit Provider Family Medicine
DX: M43.06 Spondylolysis, lumbar region (principal)
CPT/HCPCS: 72148

== ENCOUNTER → 2022-06-21 16:34 | Outpatient (CLI) | payer OTHER, SELFPAY ==
--- NOTE | 2022-06-21 16:36 | DI.RAD.S_ITS ---
PROCEDURE: XR SACRUM COCCYX MIN 2V INDICATIONS: Low back pain TECHNIQUE: 3 views of the sacrum and coccyx acquired. COMPARISON: None. FINDINGS: Bones: No fractures or dislocations. No suspicious bony lesions. Mild sacroiliac joint degeneration bilaterally. Soft tissues: Visualized bowel gas pattern is normal. No suspicious soft tissue densities. IMPRESSION: 1. No fracture. 2. Mild degenerative joint disease. Dictated by: Rossy Pepe M.D. on 06/21/2022 at 17:57 Approved by: Rossy Pepe M.D. on 06/21/2022 at 17:57
--- NOTE | 2022-06-21 16:36 | DI.RAD.S_ITS ---
PROCEDURE: XR LUMBAR SPINE 2-3V INDICATIONS: Low back pain TECHNIQUE: 3 views of the lumbar spine were acquired. COMPARISON: [facility], , XR LUMBAR SPINE 2-3V, 07/14/2021, 13:33. FINDINGS: Bones: 5 [id number] vertebrae are present. There is normal bony alignment. No vertebral body compression fractures. No suspicious bony lesions. Soft tissues: Overlying bowel gas pattern is normal. No suspicious soft tissue calcifications. IMPRESSION: No radiographic abnormalities. Dictated by: Kasia Davenport M.D. on 06/21/2022 at 17:41 Approved by: Kasia Davenport M.D. on 06/21/2022 at 17:42
== END ==
PROVIDERS: PCP Family Medicine; Referring Provider Nurse Practitioner Family; Visit Provider Nurse Practitioner Family
DX: M46.1 Sacroiliitis, not elsewhere classified (principal); M54.50 Low back pain, unspecified
CPT/HCPCS: 72100; 72220

== ENCOUNTER → 2022-06-25 13:00 | Outpatient (CLI) | payer OTHER, SELFPAY ==
[2022-06-25 15:35] LABS: Appearance Urine UA CLEAR; Bilirubin Urine UA NEGATIVE (NEGATIVE); Color Urine UA YELLOW; Glucose Urine UA NEGATIVE (Negative); Ketones Urine UA NEGATIVE (NEGATIVE); Leukocyte Esterase Urine UA NEGATIVE (NEGATIVE); Nitrite Urine UA NEGATIVE (Negative); Occult Blood Urine UA NEGATIVE (Negative); Protein Urine UA NEGATIVE (Negative); Specific Gravity Urine UA <=1.005 (1.000-1.035); Urobilinogen Urine UA 0.2 E.U./dL (0.2)
[2022-06-25 15:56] LABS: Bacteria Urine None Seen; Culture Indicated Urine Cult Not Indicated; RBC Urine None Seen (0-5/HPF); Squamous Epithelial Cell Urine None Seen (0-5/HPF); WBC Urine None Seen (0-5/HPF); pH Urine UA 6.5 (4.5-8.0)
== END ==
PROVIDERS: PCP Family Medicine; Referring Provider Family Medicine; Visit Provider Family Medicine
DX: R10.9 Unspecified abdominal pain (principal); R30.0 Dysuria
CPT/HCPCS: 81001

== ENCOUNTER 2022-08-26 09:31 | Outpatient (RCR) | payer OTHER, SELFPAY ==
--- NOTE | 2022-08-26 10:30 | PT.OIE ---
Current Diagnoses Other chronic pain (08/26/22) Low back pain, unspecified (08/26/22) Past Medical History (Last Updated 07/01/22 @ 15:51 by Carmina Garvey RN) Acne (~1984) Acquired spondylolysis of lumbar spine Anxiety (~2015) Atrial fibrillation (~2006) Bipolar disorder Breast cancer (~2013) Chronic back pain (~2000) Contusion of left foot including toes Generalized anxiety disorder Headache (~2014) History of urinary incontinence (~2017) Hypothyroidism (~2004) Irritable bowel syndrome (~2000) Lumbar strain Palpitations Post traumatic stress disorder (PTSD) (~2014) Seasonal allergies (~1981) Shoulder pain (~2014) Sinus headache Spider bite Vision disorder Past Surgical History (Last Reviewed 03/26/22 @ 16:50 by Johny Dewitt DO) Anesthesia History of partial mastectomy (~06/26/16) History of repair of rotator cuff (~04/2014) History of tubal ligation (~08/26/95) Visit Care Team Role Provider Type Johny Dewitt DO Primary Care Provider Physician Specialty: [facility] Address: [address] [place] [address] Email: [email or web address] Attending Provider Physician Referring Provider Specialty: [facility] Address: [address] [place] [address], [facility] Phone: Fax: Email: [email or web address] Physical Therapy Initial Evaluation PT-OP-A Visit Information Start: 08/26/22 09:45 Freq: Status: Active Protocol: Document 08/26/22 09:45 [facility] (Rec: 08/26/22 10:33 [facility] [id number]) Out-Patient Physical Therapy Visit Information Visit Information Visit Type Initial Evaluation Visit Start Time 09:45 Visit Stop Time 10:30 Total Visit Minutes 45 Visit Number 1 Evaluation Information Evaluation Date 08/26/22 PT-OP-B Current Condition Start: 08/26/22 09:45 Freq: Status: Active Protocol: Document 08/26/22 09:45 [facility] (Rec: 08/26/22 10:33 [facility] [id number]) Current Condition History of Current Condition Onset Date Pt has a chronic history of LBP after several falls Current Complaints Chronic LBP with radiating pain down the right leg after a fall summer 2021 History of Current Condition Cherise reports she was harvesting her grapes this summer and was on a ladder, she slipped off and hurt her left wrist on the ladder and then fell, the next morning she couldn't sit up and she noted her pain was as severe as when she broke her back. Xray was taken and no fractures but she soon thererafter started experiencing nerve pain in the R SI region. She describes her pain now as a dull throb. She is unable to wear her SI belt as it hurts to touch it. She has a history of left sided chronic back pain. She rates her current SI pain as 8 -9/10 Prior Treatments and Tests Xray and MRI have both been taken and are negative Treatment Goals Patient/Caregiver Goals Cherise would like help with pain relief Prior Functional Status Baseline Function- ADL's Independent Baseline Function- Mobility Independent Current Functional Impairments (Reported) Functional Limitations- ADL's It is painful to look after herself and she is slow and careful Functional Limitations- Mobility/Gait pain prevents her from walking more than 1/4 mile and sitting more than 10 min, and standing more than 30 min PT-OP-C Subjective Start: 08/26/22 09:45 Freq: Status: Active Protocol: Document 08/26/22 09:45 [facility] (Rec: 08/26/22 10:44 [facility] [id number]) Patient Questionnaires Oswestry Low Back Index Oswestry Score 26 Oswestry Impairment 20 to 39% Impaired (Score 20- 39) OP-PT Pain Assessment Pain Assessment Grid Paper Pain Assessment Grid Completed Yes Location left SI joint Intensity 9 Scale Used Numeric (0 - 10) Description- Other the left side of the SI joint in Jordon chronic pain side anterior pelvis Intensity 4 Scale Used Numeric (0 - 10) R SI joint Intensity 9 Scale Used Numeric (0 - 10) Description Aching PT-OP-J Posture/Palpation/Skin Start: 08/26/22 09:45 Freq: Status: Active Protocol: Document 08/26/22 09:45 [facility] (Rec: 08/26/22 10:41 [facility] [id number]) Posture Evaluation Position Standing Shoulder Posture (R) Rounded,(R) Elevated Pelvis Posture (R) Iliac Crest Superior Comments Posture Comments right iliac crest is higher than the left, guarded quadratus lumborum on the right, right shoulder elevated Palpation Assessment Location right quadratus lumborum Palpation Findings Soft Tissue Tightness,Spasm, Muscle Guarding R SI JOINT Palpation Findings Tenderness Palpation Details Right iliac crest is elevated as compared to the left PT-OP-L Special Tests Start: 08/26/22 09:45 Freq: Status: Active Protocol: Document 08/26/22 09:45 [facility] (Rec: 08/26/22 10:52 [facility] [id number]) Special Tests Other Special Tests Special Tests +ASLR test for SI instability on the left side PT-OP-M Strength Start: 08/26/22 09:45 Freq: Status: Active Protocol: Document 08/26/22 09:45 [facility] (Rec: 08/26/22 10:54 [facility] [id number]) Trunk Strength Trunk Manual Muscle Testing Testing Position Supine Flexion 3 Fair Core Stabilization poor core stabilization, Cherise has paraspinal muscle guarding when donta her TA and pelvic floor, she has difficulty sustaining a pelvic floor or TA contraction Hip Strength Hip Manual Muscle Testing Left Flexion (L2) 4 Good Extension (S1) 4 Good Abduction 4 Good Adduction 4 Good External Rotation 4 Good Internal Rotation 4 Good Right Flexion (L2) 4- Good- Extension (S1) 4- Good- Abduction 4- Good- Adduction 4- Good- External Rotation 4- Good- Internal Rotation 4- Good- Comments pain with resisted hip MMT PT-OP-Q Treatments Start: 08/26/22 09:45 Freq: Status: Active Protocol: Document 08/26/22 09:45 [facility] (Rec: 08/26/22 10:49 [facility] [id number]) Therapeutic Exercises Supine Exercises gentle pelvic floor and TA isolations Side right Comments pt to work on this in sidelying and trying not to engage her lumbar muscles Other Exercises stacy pose Side bilateral Comments HEP Manual Therapy Treatment Soft Tissue Mobilization right quadratus lumborum release Mobilization Type Myofascial Release Intensity/Depth Superficial Body Position Sidelying Comments MFR to the right quadratus lumborum in left sidelying PT-OP-T Assessment and Plan Start: 08/26/22 09:45 Freq: Status: Active Protocol: Document 08/26/22 09:45 [facility] (Rec: 08/26/22 11:03 [facility] [id number]) Physical Therapy Assessment Rehab Potential Rehabilitation Potential Good Evaluation Complexity Number of Personal Factors/Comorbidities 0 Number of Body Systems Impaired 1-2 Clinical Presentation at Evaluation Stable Impairments Impairments Activity Tolerance,Functional Mobility,Pain,Posture,Soft Tissue Mobility,Strength,Tone Goals 4 Impairment Instability of the SI joint with + ASLR test and decreased ability to sustain a contraction of the inner core muscles due to pain/weakness Short Term Goal (STG) Cherise is tolerating gentle low back and SI stabilization exercises STG Duration 4 weeks Senior Living Goal (LTG) Improve dynamic stabilization of the core muscles and Cherise is able to keep her pelvis stable with Active SLR LTG Duration 12 weeks 3 Impairment Tightness and guarding of the right quadratus lumborum with the right iliac crest elevated Short Term Goal (STG) Manual MFR techniques are helpful at reducing muscle guarding and spasm and we are able to level out the pelvis STG Duration 6 weeks 2 Impairment Pain prevents Cherise for walking more than 1 mile and sitting more than 10 minutes Corporate Traffic Manager Goal (LTG) Cherise is able to return to walking 2-3 miles without increase in pain and sitting tolerance of a hour for her ability to continue intelligence clerk LTG Duration 12 weeks 1 Impairment B SI pain with new flare up of the right side since patients fall off a ladder in the summer of 2021. Pain is rated 8-9/10 with radiating pain down the right side. Senior Living Goal (LTG) Cherise reports a overall reduction of pain levels and is no longer c/o radicular pain symptoms LTG Duration 12 weeks Assessment Summary Assessment Cherise is 51 year old female referred to PT with right sided SI joint pain that began after a fall off a ladder in the summer of 2021. She has undergone x-rays and a MRI both of which are negative. She has a chronic history of left sided SI pain and instability and now after the fall she is experiencing right sided SI pain as well as right sided radicular symptoms . With examination today she is tight and guarded in the right quadratus lumborum, and the right iliac crest is elevated. There is a + ASLR test for SI instability. She has pain with quadratus lumborum stretching. She did tolerate gentle MFR over the right quadruatus lumborum attachments today and was given gentle SI balance exercises to begin working on for home. Cherise is a good candidate for PT and tolerated today's treatment well. Physical Therapy Plan Frequency and Duration Frequency of Treatment 2x/Week Duration of treatment (weeks) 12 Plan of Care Start Date 08/26/22 Plan of Care End Date 11/18/22 Therapeutic Interventions Therapeutic Interventions Home Exercise Program,Manual Therapy,Neuromuscular Re- education,Patient/Caregiver Education,Self-Care/Home Management,Soft Tissue Mobilization,Therapeutic Exercises Modalities Cold Pack/Ice Massage, Ultrasound Next Visit Focus/Plan Next Note Type Treatment Note Next Visit Plan reassess tone of the right quadratus lumborum, pelvis alignment, pelvic floor and TA islolations and core stabilization
--- NOTE | 2022-08-31 10:17 | PT.OPPOC ---
Physical, Occupational & Speech Therapy At [facility] Current Diagnoses Other chronic pain (08/26/22) Low back pain, unspecified (08/26/22) Visit Care Team Role Provider Type Johny Dewitt DO Primary Care Provider Physician Specialty: Family Practice Address: [address] [place] [address], [id number] Email: [email or web address] Contreras Attending Provider Physician Referring Provider Specialty: Family Practice Address: [facility] [place], [address] Phone: Fax: Email: [email or web address] Plan Of Care PT-OP-T Assessment and Plan Start: 08/26/22 09:45 Freq: Status: Active Protocol: Document 08/26/22 09:45 [facility] (Rec: 08/26/22 11:03 [facility] [id number]) Physical Therapy Assessment Rehab Potential Rehabilitation Potential Good Evaluation Complexity Number of Personal Factors/Comorbidities 0 Number of Body Systems Impaired 1-2 Clinical Presentation at Evaluation Stable Impairments Impairments Activity Tolerance,Functional Mobility,Pain,Posture,Soft Tissue Mobility,Strength,Tone Goals 4 Impairment Instability of the SI joint with + ASLR test and decreased ability to sustain a contraction of the inner core muscles due to pain/weakness Short Term Goal (STG) Cherise is tolerating gentle low back and SI stabilization exercises STG Duration 4 weeks Generator Technician Goal (LTG) Improve dynamic stabilization of the core muscles and Cherise is able to keep her pelvis stable with Active SLR LTG Duration 12 weeks 3 Impairment Tightness and guarding of the right quadratus lumborum with the right iliac crest elevated Short Term Goal (STG) Manual MFR techniques are helpful at reducing muscle guarding and spasm and we are able to level out the pelvis STG Duration 6 weeks 2 Impairment Pain prevents Cherise for walking more than 1 mile and sitting more than 10 minutes Generator Technician Goal (LTG) Cherise is able to return to walking 2-3 miles without increase in pain and sitting tolerance of a hour for her ability to continue 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 Pain is rated 8-9/10 with radiating pain down the right side. Senior Care Goal (LTG) Cherise reports a overall reduction of pain levels and is no longer c/o radicular pain symptoms LTG Duration 12 weeks Assessment Summary Assessment Cherise is 51 year old female referred to PT with right sided SI joint pain that began after a fall off a ladder in the summer. She has undergone x-rays and a MRI both of which are negative. She has a chronic history of left sided SI pain and instability and now after the fall she is experiencing right sided SI pain as well as right sided radicular symptoms . With examination today she is tight and guarded in the right quadratus lumborum, and the right iliac crest is elevated. There is a + ASLR test for SI instability. She has pain with quadratus lumborum stretching. She did tolerate gentle MFR over the right quadruatus lumborum attachments today and was given gentle SI balance exercises to begin working on for home. Cherise is a good candidate for PT and tolerated today's treatment well. Physical Therapy Plan Frequency and Duration Frequency of Treatment 2x/Week Duration of treatment (weeks) 12 Plan of Care Start Date 08/26/22 Plan of Care End Date 11/18/22 Therapeutic Interventions Therapeutic Interventions Home Exercise Program,Manual Therapy,Neuromuscular Re- education,Patient/Caregiver Education,Self-Care/Home Management,Soft Tissue Mobilization,Therapeutic Exercises Modalities Cold Pack/Ice Massage, Ultrasound Next Visit Focus/Plan Next Note Type Treatment Note Next Visit Plan reassess tone of the right quadratus lumborum, pelvis alignment, pelvic floor and TA isolations and core stabilization Plan of Care Dates Plan of Care Start Date 08/26/22 Plan of Care End Date 11/18/22 Electronically Signed by: Angelic Brewer, PT 08/31/22 1017 If you are in agreement with this Plan of Care, please return a signed and dated copy. I have reviewed this Plan of Care and certify that the skilled therapy services above are required to meet the patient?s needs. Physician Signature Date Printed Name and Credentials Clinical Instructor Signature Printed Name and Credentials
--- NOTE | 2022-09-22 13:26 | PT.OPDS ---
Current Diagnoses Other chronic pain (08/26/22) Low back pain, unspecified (08/26/22) Visit Care Team Role Provider Type Johny Dewitt DO Primary Care Provider Physician Specialty: Family Practice Address: [address] [place] [address], [address] Email: [email or web address] Contreras Attending Provider Advanced Service Technician Referring Provider Specialty: Address: [address] [place] [address], [facility], [place], [address] Phone: Fax: Email: [email or web address] Visit Number Visit Number 1 Discharge Summary PT-OP-B Current Condition Start: 08/26/22 09:45 Freq: Status: Active Protocol: Document 08/26/22 09:45 [facility] (Rec: 08/26/22 10:33 [facility] [id number]) Current Condition History of Current Condition Onset Date Pt has a chronic history of LBP after several falls Current Complaints Chronic LBP with radiating pain down the right leg after a fall summer 2021 History of Current Condition Cherise reports she was harvesting her grapes this summer and was on a ladder, she slipped off and hurt her left wrist on the ladder and then fell, the next morning she couldn't sit up and she noted her pain was as severe as when she broke her back. Xray was taken and no fractures but she soon thererafter started experiencing nerve pain in the R SI region. She describes her pain now as a dull throb. She is unable to wear her SI belt as it hurts to touch it. She has a history of left sided chronic back pain. She rates her current SI pain as 8 -9/10 Prior Treatments and Tests Xray and MRI have both been taken and are negative Treatment Goals Patient/Caregiver Goals Cherise would like help with pain relief Prior Functional Status Baseline Function- ADL's Independent Baseline Function- Mobility Independent Current Functional Impairments (Reported) Functional Limitations- ADL's It is painful to look after herself and she is slow and careful Functional Limitations- Mobility/Gait pain prevents her from walking more than 1/4 mile and sitting more than 10 min, and standing more than 30 min PT-OP-C Subjective Start: 08/26/22 09:45 Freq: Status: Active Protocol: Document 08/26/22 09:45 [facility] (Rec: 08/26/22 10:44 [facility] [id number]) Patient Questionnaires Oswestry Low Back Index Oswestry Score 26 Oswestry Impairment 20 to 39% Impaired (Score 20- 39) OP-PT Pain Assessment Pain Assessment Grid Paper Pain Assessment Grid Completed Yes Location left SI joint Intensity 9 Scale Used Numeric (0 - 10) Description- Other the left side of the SI joint in Jordon chronic pain side anterior pelvis Intensity 4 Scale Used Numeric (0 - 10) R SI joint Intensity 9 Scale Used Numeric (0 - 10) Description Aching PT-OP-J Posture/Palpation/Skin Start: 08/26/22 09:45 Freq: Status: Active Protocol: Document 08/26/22 09:45 [facility] (Rec: 08/26/22 10:41 [facility] [id number]) Posture Evaluation Position Standing Shoulder Posture (R) Rounded,(R) Elevated Pelvis Posture (R) Iliac Crest Superior Comments Posture Comments right iliac crest is higher than the left, guarded quadratus lumborum on the right, right shoulder elevated Palpation Assessment Location right quadratus lumborum Palpation Findings Soft Tissue Tightness,Spasm, Muscle Guarding R SI JOINT Palpation Findings Tenderness Palpation Details Right iliac crest is elevated as compared to the left PT-OP-L Special Tests Start: 08/26/22 09:45 Freq: Status: Active Protocol: Document 08/26/22 09:45 [facility] (Rec: 08/26/22 10:52 [facility] [id number]) Special Tests Other Special Tests Special Tests +ASLR test for SI instability on the left side PT-OP-M Strength Start: 08/26/22 09:45 Freq: Status: Active Protocol: Document 08/26/22 09:45 [facility] (Rec: 08/26/22 10:54 [facility] [id number]) Trunk Strength Trunk Manual Muscle Testing Testing Position Supine Flexion 3 Fair Core Stabilization poor core stabilization, Cherise has paraspinal muscle guarding when donta her TA and pelvic floor, she has difficulty sustaining a pelvic floor or TA contraction Hip Strength Hip Manual Muscle Testing Left Flexion (L2) 4 Good Extension (S1) 4 Good Abduction 4 Good Adduction 4 Good External Rotation 4 Good Internal Rotation 4 Good Right Flexion (L2) 4- Good- Extension (S1) 4- Good- Abduction 4- Good- Adduction 4- Good- External Rotation 4- Good- Internal Rotation 4- Good- Comments pain with resisted hip MMT PT-OP-T Assessment and Plan Start: 08/26/22 09:45 Freq: Status: Active Protocol: Document 09/22/22 13:25 [facility] (Rec: 09/22/22 13:26 [facility] [id number]) Physical Therapy Assessment Assessment Summary Assessment Per phone conversation Cherise is not able to afford her co- pays at this time and wishes to be discharged from PT Physical Therapy Plan Discharge Physical Therapy Discharge Reasons Patient Request Discharge Comments pt needs to DC due to financial reasons
== END 2022-09-27 11:23 | disposition home or self-care (01) ==
LOC: PHYS 09:31
PROVIDERS: Absent Provider Family Medicine; PCP Family Medicine; Referring Provider Nurse Practitioner Family; Visit Provider Nurse Practitioner Family
DX: M54.50 Low back pain, unspecified (principal); G89.29 Other chronic pain
CPT/HCPCS: 97140

== ENCOUNTER → 2022-12-25 11:56 | Outpatient (CLI) | payer OTHER, MEDICAID, SELFPAY ==
--- NOTE | 2022-12-25 12:00 | DI.RAD.S_ITS ---
PROCEDURE: XR SHOULDER LT MIN 2V INDICATIONS: Left shoulder pain TECHNIQUE: 3 views of the shoulder were acquired. COMPARISON: None. FINDINGS: Bones: No fractures or dislocations. No suspicious bony lesions. Visualized ribs appear intact. Mild acromioclavicular joint degenerative changes. Glenohumeral joint appears intact. Soft tissues: No suspicious soft tissue calcifications. Surgical clips within the axilla. Imaged lungs are clear. IMPRESSION: Mild acromioclavicular joint degenerative changes without acute osseous abnormality. Dictated by: Jas Shelley D.O. on 12/25/2022 at 11:41 Approved by: Jas Shelley D.O. on 12/25/2022 at 11:42
== END ==
PROVIDERS: PCP Family Medicine; Referring Provider Registered Nurse; Visit Provider Registered Nurse
DX: M25.512 Pain in left shoulder (principal)
CPT/HCPCS: 73030

== ENCOUNTER 2023-04-14 13:14 | Day surgery (SDC) | payer OTHER, MEDICAID, SELFPAY ==
[2023-04-14] VITALS (7 sets, daily range): BP systolic 117–153; BP diastolic 76–92; PULSE 69–105; RESP 14–20; TEMP 36.2–36.6; O2SAT 96–100; BMI 23.8
--- NOTE | 2023-04-14 15:10 | PM.PREOP ---
Pre-operative Note Interval Note History & Physical reviewed/Exam performed by Physician: Yes Changes to H&P: No
--- NOTE | 2023-04-14 15:10 | PM.HP.1 ---
History of Present Illness History of Present Illness Date Patient Seen: 04/14/23 Time Patient Seen: 15:11 [place] [facility] [place]: 52-year-old female last seen in clinic 01/31/2023 for chronic tonsillitis, tonsil stones and halitosis, 2+ tonsils, presents for tonsillectomy and possible adenoidectomy. No interval health changes. She would like to proceed with surgery as outpatient. [facility] Medical History Acne (~1984) Acquired spondylolysis of lumbar spine Anxiety (~2015) Atrial fibrillation (~2006) Bipolar disorder Breast cancer (~2013) Chronic back pain (~2000) Contusion of left foot including toes Generalized anxiety disorder Headache (~2014) History of urinary incontinence (~2017) Hypothyroidism (~2004) Irritable bowel syndrome (~2000) Lumbar strain Palpitations Post traumatic stress disorder (PTSD) (~2014) Seasonal allergies (~1981) Shoulder pain (~2014) Sinus headache Spider bite Strain of tendon of left rotator cuff Tonsillar calculus Vision disorder Surgical History Anesthesia History of partial mastectomy (~06/26/16) History of repair of rotator cuff (~04/2014) History of tubal ligation (~08/26/95) Family History Father Cancer Mother Atrial fibrillation Heart disease Brother Heart disease Hypertension Stroke Sister Heart disease Mental health problem Grandmother Heart disease Grandmother No problems noted. Social History marital status: household members: family lives independently: No caregiver/support person: No housing: house pets and animals: Yes occupational status: employed current occupational exposures/hazards: No special fern needs: No sexual history: Reports not sexually active. leisure activities: music seatbelt use: always Smoking Status: Former smoker Tobacco: How many years used: 32 quit status: quit date established second hand exposure: Yes alcohol intake: former substance use type: marijuana during the past year weight has: remained stable well-balanced diet: daily or most days daily servings fruits/ve-4 (banana every morning, fruit smoothies most days, salads) caffeine: Yes eating out: rarely or never Type(s) of exercise: restricted ROM & activity additional social history: Recently . Meds Home Medications and Allergies Home Medications Medication Instructions Recorded Confirmed Type Supplement List (Scanned 09/28/18) PO 09/28/18 01/10/23 History ibuprofen 600 mg tablet 600 mg PO Q6H PRN fever or pain 01/09/20 01/10/23 Rx #24 tabs levothyroxine 112 mcg tablet 112 mcg PO DAILY #90 tabs 12/07/22 01/10/23 Rx (Synthroid) cyclobenzaprine 10 mg tablet See Rx Instructions .Route 03/04/23 Rx .COMPLEX #30 tabs tramadol 50 mg tablet See Rx Instructions .Route 03/25/23 Rx .COMPLEX #60 tabs Allergies Allergy/AdvReac Type Severity Reaction Status Date / Time iodine Allergy Intermediate Swollen Verified 01/10/23 15:42 gums and skin Review of Systems Review of Systems Narrative: Negative except as listed in the HPI Exam Narrative Exam Narrative: Well-developed well-nourished, heart regular rate and rhythm without murmur, lungs clear to auscultation bilaterally Assessment & Plan Assessment & Plan narrative: Assessment chronic tonsillitis with tonsil stones, halitosis Plan: Following discussion of the material risks benefits complications and alternatives, the patient elected to proceed.
--- NOTE | 2023-04-14 15:12 | PM.OP.1 ---
Operative Date/Time/Diagnoses Date of procedure: 04/14/23 Time of procedure: 16:56 Pre-op diagnosis: Chronic tonsillitis, tonsil stones, halitosis Post-op diagnosis: same Procedure & Clinicians Procedure: Tonsillectomy Same procedure as scheduled: Yes Indications: 52 Year old with the above diagnoses incompletely managed with medical therapy presents for the above procedure. Following discussion of the material risks benefits complications and alternatives, the patient elected to proceed. Surgeon: Adam Delgado Click Yes if Unassisted: Yes Anesthesia Type: General and Local Operative Notes Findings: Intact palate, single uvula, 2+ tonsils with stones, no significant adenoids Estimated Blood Loss (mL): 5 Procedure in detail: Following identification and confirmation of consent the patient was brought to the operating room suite and placed in the supine position. General endotracheal anesthesia was administered. A head wrap, shoulder roll, and mouth gag were placed and a red rubber catheter was inserted through the nostril and out the mouth to retract the soft palate. No significant adenoid tissue was present. The left tonsil was retracted medially and suction electrocautery on a setting of 30 was used to dissect the tonsil in a subcapsular plane, followed by hemostasis with the same. This process was repeated on the right side with identical findings. The tonsillar fossae were superficially infiltrated bilaterally with 2% lidocaine 1 100,000 epinephrine. Mouth gag and rubber catheter were removed and the patient was extubated in the operating room and taken to the recovery room in stable condition without known complication. Complications: none Post-operative Condition: stable Disposition: same day surgery Plan for aftercare: Push fluids, alternate Tylenol and Advil every 3 hours for baseline pain control, oxycodone for breakthrough pain. Soft diet 2 full weeks, no heavy lifting or straining 2 weeks.
[2023-04-14] MEDS: LACTATED RINGERS 1,000 ML 120 ML IV (15:35)
--- NOTE | 2023-04-14 16:38 | SUR.OPER ---
Supine on padded OR bed, head on gel donut, arms secured on padded arm boards at <90 degrees abduction, legs uncrossed, safety belt at thigh, tape over blanket over lower legs.
[2023-04-14] MEDS: LIDOCAINE 2% W/EPI INJ 20 ML INJ (16:42)
[2023-04-14] MEDS: MEPERIDINE 50 MG/ML INJ 12.5 MG IV (17:12)
[2023-04-14] MEDS: OXYCODONE 5 MG/5 ML ORAL SOLUTION PO (17:33)
== END 2023-04-14 17:57 | disposition home or self-care (01) ==
PROVIDERS: PCP Family Medicine; Referring Provider Otolaryngology; Visit Provider Otolaryngology
PROC: (CPT 42821; principal; 2023-04-14 14:45)
DX: J35.01 Chronic tonsillitis (principal); J35.8 Other chronic diseases of tonsils and adenoids
CPT/HCPCS: 42821; J0330; J1100; J2175; J2405; J3010

== ENCOUNTER → 2023-05-26 13:19 | Outpatient (CLI) | payer OTHER, MEDICAID, SELFPAY ==
[2023-05-26 14:17] LABS: Add Manual Diff / Slide Review NO; Basophils Absolute Auto 0 /uL (0-100); Basophils Percent Auto 0.7 % (0-2); Eosinophils Absolute Auto 100 /uL (0-450); Eosinophils Percent Auto 2.3 % (2-4); Hematocrit 34.8 % (36-46); Hemoglobin 11.9 g/dL (12.0-16.0); Lymphocytes Absolute Auto 1600 /uL (1100-4500); Lymphocytes Percent Auto 38.2 % (25-40); Mean Corpuscular HGB Conc 34.3 % (30-36); Mean Corpuscular Hemoglobin 31.2 PG (26-34); Monocytes Absolute Auto 300 /uL (0-900); Monocytes Percent Auto 7.8 % (3-14); Neutrophils Absolute Auto 2200 /uL (1500-7000); Platelet Count 247 X10^3/uL (150-400); Red Blood Cell Count 3.82 X10^6/uL (4.0-5.2); Red Cell Distribution Width 13.3 % (11.6-14.8); White Blood Cell Count 4.3 X10^3/uL (4.5-11.0)
[2023-05-26 14:49] LABS: Alanine Aminotransferase 20 IU/L (<35); Albumin 4.6 g/dL (3.5-5.0); Albumin Globulin Ratio 1.6 (1.0-2.8); Alkaline Phosphatase 70 U/L (38-126); Aspartate Aminotransferase 23 IU/L (14-36); BUN Creatinine Ratio 14.1 (6-22); Bilirubin Total 0.2 mg/dL (0.2-1.3); Blood Urea Nitrogen 10 mg/dL (7-17); Calcium 9.4 mg/dL (8.4-10.2); Carbon Dioxide 28 mmol/L (22-32); Chloride 101 mmol/L (98-107); Cholesterol 228 mg/dL (140-199); Estimated Glomerular Filt Rate > 60 mL/min (>60); Globulin 2.9 g/dL (1.7-4.1); Glucose 93 mg/dL (70-100); HDL Cholesterol 97 mg/dL (40-60); HEMOLYSIS < 15 (0-50); LDL Cholesterol Calculated 117 mg/dL (<100); Potassium 4.3 mmol/L (3.4-5.1); Sodium 138 mmol/L (137-145); Total Protein 7.5 g/dL (6.3-8.2); Triglycerides 68 mg/dL (35-150)
[2023-05-26 14:56] LABS: Free T4, Direct Thyroxine 1.33 ng/dL (0.78-2.19)
[2023-05-26 15:10] LABS: Thyroid Stimulating Hormone 0.144 uIU/mL (0.47-4.68)
== END ==
PROVIDERS: PCP Family Medicine; Referring Provider Family Medicine; Visit Provider Family Medicine
DX: E03.9 Hypothyroidism, unspecified (principal)
CPT/HCPCS: 36415; 80053; 80061; 84439; 84443; 85025

== ENCOUNTER → 2023-07-21 13:01 | Outpatient (CLI) | payer OTHER, MEDICAID, SELFPAY | PROVIDERS: PCP Family Medicine; Visit Provider Physician Assistant | DX: R30.0 Dysuria (principal); N39.0 Urinary tract infection, site not specified; Z11.3 Encounter for screening for infections with a predominantly sexual mode of transmission | CPT/HCPCS: 87086 ==

== ENCOUNTER → 2023-07-21 13:19 | Outpatient (CLI) | payer OTHER, MEDICAID, SELFPAY ==
[2023-07-21 14:16] LABS: Add Manual Diff / Slide Review NO; Basophils Absolute Auto 100 /uL (0-100); Eosinophils Absolute Auto 100 /uL (0-450); Eosinophils Percent Auto 2.5 % (2-4); Hematocrit 37.4 % (36-46); Hemoglobin 12.6 g/dL (12.0-16.0); Lymphocytes Absolute Auto 1600 /uL (1100-4500); Lymphocytes Percent Auto 30.8 % (25-40); Mean Corpuscular HGB Conc 33.7 % (30-36); Mean Corpuscular Hemoglobin 30.5 PG (26-34); Mean Corpuscular Volume 90.4 fL (80-100); Monocytes Absolute Auto 300 /uL (0-900); Monocytes Percent Auto 6.2 % (3-14); Neutrophils Absolute Auto 3100 /uL (1500-7000); Neutrophils Percent Auto 59.5 % (50-75); Platelet Count 280 X10^3/uL (150-400); Red Blood Cell Count 4.14 X10^6/uL (4.0-5.2); Red Cell Distribution Width 12.9 % (11.6-14.8); White Blood Cell Count 5.2 X10^3/uL (4.5-11.0)
[2023-07-21 14:22] LABS: HEMOLYSIS < 15 (0-50); Iron 91 ug/dL (37-170)
[2023-07-21 14:33] LABS: Percent Iron Saturation 35 % (15-50); Total Iron Binding Capacity 262 ug/dL (265-497); Transferrin 215 mg/dL (206-381)
[2023-07-21 14:39] LABS: Free T4, Direct Thyroxine 1.54 ng/dL (0.78-2.19)
[2023-07-21 14:53] LABS: Thyroid Stimulating Hormone 0.042 uIU/mL (0.47-4.68)
[2023-07-21 15:18] LABS: Vitamin B12 374 pg/mL (239-931)
[2023-07-21 16:39] LABS: Urine N gonorrhoeae NOT DETECTED
[2023-07-21 17:06] LABS: Urine Chlamydia NOT DETECTED
== END ==
PROVIDERS: PCP Family Medicine; Referring Provider Physician Assistant; Visit Provider Physician Assistant
DX: N39.0 Urinary tract infection, site not specified (principal); Z11.3 Encounter for screening for infections with a predominantly sexual mode of transmission; E03.9 Hypothyroidism, unspecified; D64.9 Anemia, unspecified
CPT/HCPCS: 36415; 82607; 83540; 83550; 84439; 84443; 85025; 87491; 87591

== ENCOUNTER → 2023-07-21 17:55 | Outpatient (CLI) | payer OTHER, MEDICAID, SELFPAY ==
--- NOTE | 2023-07-21 | DI.RAD.S_ITS ---
PROCEDURE: XR FOOT LT MIN 3V INDICATIONS: rolled ankle, foot pain TECHNIQUE: 3 views of the foot were acquired. COMPARISON: [facility], , XR FOOT LT MIN 3V, 12/17/2020, 14:39. FINDINGS: Bones: No fractures or dislocations. No suspicious bony lesions. Soft tissues: No tibiotalar joint effusion. Achilles tendon appears normal. IMPRESSION: Normal left foot radiographs Approved by: Trenton Escobar M.D. on 07/22/2023 at 17:52
--- NOTE | 2023-07-21 | DI.RAD.S_ITS ---
PROCEDURE: XR ANKLE LT MIN 3V INDICATIONS: rolled ankle, foot pain TECHNIQUE: 3 views of the ankle were acquired. COMPARISON: None. FINDINGS: Bones: No fractures or dislocations. Ankle mortise is normally aligned. No suspicious bony lesions. Distal fibular ossicle density Soft tissues: No tibiotalar joint effusion. Achilles tendon appears normal. Lateral soft tissue swelling IMPRESSION: Rounded distal fibular ossific density may reflect prior injury or ossicle. No evidence of acute fracture. Soft tissue swelling Approved by: Trenton Escobar M.D. on 07/22/2023 at 17:51
== END ==
PROVIDERS: PCP Family Medicine; Referring Provider Student in an Organized Health Care Education/Training Program; Visit Provider Student in an Organized Health Care Education/Training Program
DX: S93.402A Sprain of unspecified ligament of left ankle, initial encounter (principal); S93.602A Unspecified sprain of left foot, initial encounter; N39.0 Urinary tract infection, site not specified; E03.9 Hypothyroidism, unspecified; D64.9 Anemia, unspecified; Z11.3 Encounter for screening for infections with a predominantly sexual mode of transmission; R30.0 Dysuria; M79.89 Other specified soft tissue disorders; X58.XXXA Exposure to other specified factors, initial encounter
CPT/HCPCS: 36415; 73610; 73630; 81002; 82607; 83540; 83550; 84439; 84443; 85025; 87077; 87086; 87186; 87491; 87591

== ENCOUNTER → 2023-08-16 14:00 | Outpatient (CLI) | payer OTHER, MEDICAID, SELFPAY | PROVIDERS: PCP Family Medicine; Visit Provider Physician Assistant | DX: R30.0 Dysuria (principal) | CPT/HCPCS: 81002; 87077; 87086; 87186 ==

== ENCOUNTER → 2023-09-14 14:21 | Outpatient (CLI) | payer OTHER, MEDICAID, SELFPAY ==
[2023-09-14 16:30] LABS: Urine N gonorrhoeae NOT DETECTED
[2023-09-14 16:45] LABS: Urine Chlamydia NOT DETECTED
== END ==
PROVIDERS: Physician Assistant; PCP Family Medicine; Visit Provider Nurse Practitioner Family
DX: Z11.3 Encounter for screening for infections with a predominantly sexual mode of transmission (principal); R30.0 Dysuria
CPT/HCPCS: 81002; 87491; 87591

== ENCOUNTER → 2023-09-22 13:48 | Outpatient (CLI) | payer OTHER, MEDICAID, SELFPAY | PROVIDERS: PCP Family Medicine; Visit Provider Nurse Practitioner Family | DX: R30.0 Dysuria (principal) | CPT/HCPCS: 81002; 87077; 87086; 87186 ==

== ENCOUNTER → 2023-12-27 16:02 | Outpatient (CLI) | payer OTHER, MEDICAID, SELFPAY | PROVIDERS: PCP Family Medicine; Visit Provider Physician Assistant | DX: N39.0 Urinary tract infection, site not specified (principal) | CPT/HCPCS: 81002; 87086 ==

== ENCOUNTER → 2024-01-04 09:17 | Outpatient (CLI) | payer OTHER, MEDICAID, SELFPAY ==
--- NOTE | 2024-01-04 09:20 | DI.MG.S_ITS ---
UNILATERAL RIGHT DIGITAL SCREENING MAMMOGRAM 3D/2D WITH CAD POST MASTECTOMY: 01/04/2024 CLINICAL: Routine screening. Personal history of left breast cancer. Comparison is made to exams dated: 05/07/2016 mammogram, 01/29/2015 breast MRI - [facility], 03/12/2019 mammogram - [facility], and 01/21/2015 mammogram - [facility]. The right breast is heterogeneously dense, which may obscure small masses (category c / 51-75% glandular tissue). Current study was also evaluated with a Computer Aided Detection (CAD) system. No significant masses, calcifications, or other findings are seen in the breast. There has been no significant interval change. IMPRESSION: NEGATIVE There is no mammographic evidence of malignancy. A 1 year screening mammogram is recommended. This exam was interpreted at Station ID: [id number]. NOTE: For mammograms, a report in lay terms will be sent to the patient. Approximately 15% of breast malignancies will not be visualized mammographically. In the management of a palpable breast mass, a negative mammogram must not discourage biopsy of a clinically suspicious lesion. Electronically Signed By: Andrew maher/lan:01/04/2024 15:28:57 letter sent: Normal Exam ACR BI-RADS Category 1: Negative [id number]
== END ==
LOC: MAMMO 09:19
PROVIDERS: PCP Family Medicine; Referring Provider Family Medicine; Visit Provider Family Medicine
DX: Z12.31 Encounter for screening mammogram for malignant neoplasm of breast (principal); Z85.3 Personal history of malignant neoplasm of breast; R92.331 Mammographic heterogeneous density, right breast
CPT/HCPCS: 77063; 77067

== ENCOUNTER → 2024-02-27 10:01 | Outpatient (CLI) | payer OTHER, MEDICAID, SELFPAY ==
--- NOTE | 2024-02-27 10:03 | DI.CT.S_ITS ---
PROCEDURE: CT ABDOMEN PELVIS WO/W CON INDICATIONS: Recurring urinary tract infection TECHNIQUE: Optional 5 mm thick noncontrast images acquired from the diaphragm to the symphysis pubis. After the administration of intravenous contrast, 5 mm thick images acquired from the diaphragm to the symphysis pubis after a 10-minute delay. 2 mm thick coronal and sagittal reformats were then performed of the kidneys and ureters. For radiation dose reduction, the following was used: automated exposure control, adjustment of mA and/or kV according to patient size. Patient received premedication for prior allergy reported to topical iodine. COMPARISON: Outside Facility, [facility], US BILATERAL BREAST, 01/07/2015, 15:46. FINDINGS: Image quality: Diagnostic. Kidneys and Ureters: Both kidneys are normal in size, without hydronephrosis or nephrolithiasis. No perinephric fat stranding. There is normal bilateral renal enhancement. Renal calyces appear normal in morphology when filled with contrast. Opacified portions of both ureters demonstrate normal caliber Bladder: Bladder wall thickness is normal. No calcified bladder stones. No filling defect. OTHER: Lower chest: Unremarkable. Liver: No solid mass. Small cyst in the right lobe. Gallbladder: No radiopaque gallstones or wall thickening. Biliary ducts: No biliary dilation. Pancreas: No ductal dilation. Spleen: Size is within normal limits. Adrenal Glands: No adrenal nodules. Stomach and Bowel: Normal colonic caliber, without significant wall thickening. Normal appendix. Peritoneum: No abnormal intraperitoneal fluid. No free air. Ventral Wall: No hernia. Abdominal Nodes: No retroperitoneal or mesenteric adenopathy by size criteria. Vessels: Aorta and inferior vena cava are normal in size. PELVIS: Pelvic Organs: Anteverted uterus. Pelvic Nodes: No enlarged lymph nodes. Miscellaneous: No inguinal hernias are seen. Bones: No aggressive osseous abnormality. IMPRESSION: 1. No acute abnormality. No kidney stones. No hydronephrosis. 2. No solid renal mass. No upper urinary tract filling defect. No adenopathy. 3. No bladder filling defect. No bladder stone. Dictated by: Andrew Barron M.D. on 02/27/2024 at 13:23 Approved by: Andrew Barron M.D. on 02/27/2024 at 14:41
== END ==
PROVIDERS: PCP Family Medicine; Referring Provider Urology; Visit Provider Urology
DX: N39.0 Urinary tract infection, site not specified (principal); K76.89 Other specified diseases of liver; Z87.891 Personal history of nicotine dependence
CPT/HCPCS: 74178; Q9967

== ENCOUNTER → 2024-04-21 10:15 | Outpatient (CLI) | payer OTHER, MEDICAID, SELFPAY | PROVIDERS: PCP Family Medicine; Visit Provider Registered Nurse | DX: R30.0 Dysuria (principal) | CPT/HCPCS: 81002; 87077; 87086; 87186 ==

== ENCOUNTER → 2024-09-05 14:15 | Outpatient (CLI) | payer OTHER, SELFPAY | PROVIDERS: PCP Family Medicine; Visit Provider Physician Assistant Medical | DX: R30.0 Dysuria (principal); N94.9 Unspecified condition associated with female genital organs and menstrual cycle | CPT/HCPCS: 87086; 87210 ==

== ENCOUNTER → 2025-02-14 07:33 | Outpatient (CLI) | payer OTHER, SELFPAY ==
[2025-02-14 08:51] LABS: Add Manual Diff / Slide Review NO; Basophils Absolute Auto 0 /uL (0-100); Basophils Percent Auto 0.7 % (0-2); Eosinophils Absolute Auto 300 /uL (0-450); Eosinophils Percent Auto 5.9 % (2-4); Hematocrit 37.6 % (36-46); Hemoglobin 12.7 g/dL (12.0-16.0); Lymphocytes Absolute Auto 2000 /uL (1100-4500); Lymphocytes Percent Auto 43.2 % (25-40); Mean Corpuscular HGB Conc 33.7 % (30-36); Mean Corpuscular Hemoglobin 30.7 PG (26-34); Monocytes Absolute Auto 400 /uL (0-900); Monocytes Percent Auto 8.3 % (3-14); Neutrophils Absolute Auto 1900 /uL (1500-7000); Neutrophils Percent Auto 41.9 % (50-75); Platelet Count 263 X10^3/uL (150-400); Red Blood Cell Count 4.14 X10^6/uL (4.0-5.2); Red Cell Distribution Width 13.7 % (11.6-14.8); White Blood Cell Count 4.6 X10^3/uL (4.5-11.0)
[2025-02-14 09:30] LABS: HEMOLYSIS < 15 (0-50); Iron 77 ug/dL (37-170)
[2025-02-14 09:32] LABS: Alanine Aminotransferase 20 IU/L (<35); Albumin 4.7 g/dL (3.5-5.0); Albumin Globulin Ratio 1.9 (1.0-2.8); Alkaline Phosphatase 94 U/L (38-126); Aspartate Aminotransferase 25 IU/L (14-36); Bilirubin Total 0.4 mg/dL (0.2-1.3); Blood Urea Nitrogen 16 mg/dL (7-17); Calcium 9.9 mg/dL (8.4-10.2); Carbon Dioxide 29 mmol/L (22-32); Chloride 101 mmol/L (98-107); Cholesterol 281 mg/dL (140-199); Estimated Glomerular Filt Rate > 60 mL/min (>60); Globulin 2.5 g/dL (1.7-4.1); Glucose 98 mg/dL (70-99); HDL Cholesterol 106 mg/dL (40-60); HEMOLYSIS < 15 (0-50); LDL Cholesterol Calculated 161 mg/dL (<100); Potassium 5.3 mmol/L (3.4-5.1); Sodium 139 mmol/L (137-145); Total Protein 7.2 g/dL (6.3-8.2); Triglycerides 71 mg/dL (35-150)
[2025-02-14 09:42] LABS: Percent Iron Saturation 31 % (15-50); Total Iron Binding Capacity 249 ug/dL (265-497); Transferrin 231 mg/dL (206-381)
[2025-02-14 09:49] LABS: Free T4, Direct Thyroxine 1.34 ng/dL (0.78-2.19)
[2025-02-14 10:02] LABS: Thyroid Stimulating Hormone 0.499 uIU/mL (0.47-4.68)
[2025-02-14 10:21] LABS: Vitamin B12 695 pg/mL (239-931)
== END ==
PROVIDERS: PCP Family Medicine; Referring Provider Family Medicine; Visit Provider Family Medicine
DX: E03.9 Hypothyroidism, unspecified (principal); D64.9 Anemia, unspecified; Z87.891 Personal history of nicotine dependence
CPT/HCPCS: 36415; 80053; 80061; 82607; 83540; 83550; 84439; 84443; 85025

== ENCOUNTER 2025-02-18 10:01 | Day surgery (SDC) | payer OTHER, SELFPAY ==
[2025-02-18] MEDS: FLEETS ENEMA 1 EACH PR (10:18)
[2025-02-18] MEDS: LACTATED RINGERS 1,000 ML 42 ML IV (10:38)
[2025-02-18 10:41] VITALS: BP 144/87; PULSE 80; RESP 15; TEMP 35.8; O2SAT 99
--- NOTE | 2025-02-18 10:47 | P.HP_ITS ---
History of Present Illness History of Present Illness Date Patient Seen: 02/18/25 Chief complaint: Colonoscopy Narrative: For screening colonoscopy [facility] Medical History Borderline hyperlipidemia Postcoital UTI History of tobacco use Moderate left ankle sprain Anemia Strain of tendon of left rotator cuff Tonsillar calculus Lumbar strain Acquired spondylolysis of lumbar spine Contusion of left foot including toes Palpitations Generalized anxiety disorder Spider bite Sinus headache Vision disorder Acne (~1984) Seasonal allergies (~1981) Post traumatic stress disorder (PTSD) (~2014) Bipolar disorder Anxiety (~2015) Headache (~2014) Shoulder pain (~2014) Chronic back pain (~2000) History of urinary incontinence (~2017) Irritable bowel syndrome (~2000) Hypothyroidism (~2004) Atrial fibrillation (~2006) Breast cancer (~2013) Surgical History Anesthesia History of partial mastectomy (~06/26/16) History of repair of rotator cuff (~04/2014) History of tubal ligation (~08/26/95) Family History Father Cancer Mother Atrial fibrillation Heart disease Cancer Stroke Thyroid disorder Brother Heart disease Hypertension Stroke Gout Kidney stone Sister Heart disease Mental health problem Grandmother Heart disease Thyroid disorder Grandmother No problems noted. Social History marital status: number of children: 2 household members: family lives independently: No caregiver/support person: No housing: house pets and animals: Yes occupational status: employed current occupational exposures/hazards: No special fern needs: No leisure activities: music seatbelt use: always Smoking Status: Former smoker Tobacco: How many years used: 32 quit status: quit date established second hand exposure: Yes alcohol intake: former substance use type: marijuana during the past year weight has: remained stable well-balanced diet: daily or most days daily servings fruits/ve-4 caffeine: Yes eating out: rarely or never Type(s) of exercise: none and restricted ROM & activity additional social history: Recently . Meds Home Medications and Allergies Home Medications Medication Instructions Recorded Confirmed Type estradiol 0.01% (0.1 mg/gram) 0.25 appful vaginal DAILY #42.5 05/15/24 09/05/24 Rx vaginal cream grams varenicline tartrate 1 mg tablet 1 mg PO BID #56 tabs 09/26/24 02/18/25 Rx (Chantix Continuing Month Box) cyclobenzaprine 10 mg tablet See Rx Instructions .Route 11/22/24 02/18/25 Rx .COMPLEX #30 tabs d-mannose 1 cap PO DAILY 01/01/25 01/01/25 History levothyroxine 112 mcg tablet 112 mcg PO DAILY #30 tabs 02/12/25 02/18/25 Rx (Synthroid) sulfamethoxazole 800 1 tab PO ONCE PRN Post coital #20 02/12/25 02/18/25 Rx mg-trimethoprim 160 mg tablet tabs (Bactrim DS) tramadol 50 mg tablet 50 mg PO BID #60 tabs 02/12/25 02/18/25 Rx Allergies Allergy/AdvReac Type Severity Reaction Status Date / Time iodine Allergy Intermediate Swollen Verified 01/01/25 13:51 gums and skin shellfish derived Allergy Intermediate gums Verified 02/18/25 10:27 swelling Exam Vital Signs (past 8 hours): - 02/18/25 10:41 Temperature 96.5 F L Pulse Rate 80 Respiratory Rate 15 Blood Pressure 144/87 H Pulse Oximetry 99 Oxygen Delivery Method Room Air Oxygen Delivery Method Room Air Assessment & Plan Assessment & Plan narrative: For screening colonoscopy. Risks, benefits, alternatives have been explained. Time-Based Coding :: [TOTAL MINUTES] spent with patient and on the chart (including review of chart, obtaining history, exam, reviewing outside data, placing orders, documenting exam and treatment plan, and counseling patient) on [DATE]. [employer] Director [employer] Document charge(s): No
--- NOTE | 2025-02-18 11:02 | PM.OP.COLON ---
Operative Date/Time/Diagnoses Date of procedure: 02/18/25 Time of procedure: 11:04 Pre-op diagnosis: See indication and findings Post-op diagnosis: same Procedure & Clinicians Study performed: Colonoscopy for screening Same procedure as scheduled: Yes Indications: For screening Surgeon: Orion Banuelos Procedure Notes Procedure in detail: After informed consent was obtained the patient was placed in left lateral decubitus position. The video colonoscope was introduced the rectum slowly advanced. Preparation was only fair in had significant difficulty suctioning all of the areas clear due to semi solid stool. Procedure was aborted with the right colon as maximal insertion. Blood loss none Complications none Sedation mac Findings 1. Poor prep unable to complete colonoscopy Patient will need follow-up a scheduling with 3 days of clear liquids and extra dose of prep.
[2025-02-18 11:07] VITALS: BP 104/70; PULSE 78; RESP 16; TEMP 36.2; O2SAT 98
[2025-02-18 11:09] VITALS: BP 112/70; PULSE 78; RESP 16; O2SAT 98
[2025-02-18 11:14] VITALS: BP 114/70; BP 122/70; PULSE 76; PULSE 78; RESP 14; RESP 16; TEMP 36.2; O2SAT 97; O2SAT 98
== END 2025-02-18 11:40 | disposition home or self-care (01) ==
PROVIDERS: PCP Family Medicine; Referring Provider Internal Medicine Gastroenterology; Visit Provider Internal Medicine Gastroenterology
PROC: 0DJD8ZZ Inspection of Lower Intestinal Tract, Via Natural or Artificial Opening Endoscopic (ICD-10-PCS; CPT 45378; principal; 2025-02-18 11:00)
DX: Z12.11 Encounter for screening for malignant neoplasm of colon (principal); Z53.09 Procedure and treatment not carried out because of other contraindication
CPT/HCPCS: 45378; J2704

== ENCOUNTER → 2025-03-11 14:47 | Outpatient (CLI) | payer OTHER, SELFPAY ==
--- NOTE | 2025-03-11 14:49 | DI.MG.S_ITS ---
MM screening mammo unilat RT: 03/11/2025. BI-RADS: 0 CLINICAL: 54-year old female for right screening mammogram. No Tyrer-Cuzick risk score calculation due to the patient's personal history of breast cancer. Patient reports a history of left breast carcinoma diagnosed at age 45. Status-post left mastectomy with chemotherapy. No first-degree family history of breast cancer. The patient had a prior left breast biopsy. PRIOR EXAMS 01/04/2024, 03/12/2019. MAMMOGRAPHY TECHNIQUE: 2D and 3D (tomosynthesis) digital mammographic views obtained, with additional images as needed for full coverage. Current study was also evaluated with a Computer Aided Detection (CAD) system. DENSITY Right: C. The breasts are heterogeneously dense, which may obscure small masses. MAMMOGRAPHY FINDINGS Right: MLO only, Upper, Middle depth: Asymmetry needing additional imaging evaluation. Right: MLO only, Axilla: Calcifications needing additional imaging evaluation. Within lymph node. IMPRESSION: Right (Asymmetry): MLO only, Upper, Middle depth * Incomplete - asymmetry needing additional imaging evaluation. Right (Calcification): MLO only, Axilla * Incomplete - calcification needing additional imaging evaluation. RECOMMENDATIONS Right * Further evaluation with diagnostic mammography and diagnostic ultrasound. Ultrasound to be performed only if needed. OVERALL ASSESSMENT CATEGORY BI-RADS-0: Incomplete - Need Additional Imaging Evaluation. ELECTRONICALLY SIGNED: Gabriel Grsos M.D. on 03/12/2025 at 08:37:58 AM PT Interpreting Station ID: [id number]
== END ==
LOC: MAMMO 14:48
PROVIDERS: PCP Family Medicine; Referring Provider Family Medicine; Visit Provider Family Medicine
DX: Z12.31 Encounter for screening mammogram for malignant neoplasm of breast (principal); Z85.3 Personal history of malignant neoplasm of breast; Z90.12 Acquired absence of left breast and nipple; R92.331 Mammographic heterogeneous density, right breast
CPT/HCPCS: 77063; 77067

== ENCOUNTER → 2025-04-09 11:53 | Outpatient (CLI) | payer OTHER, SELFPAY ==
--- NOTE | 2025-04-09 11:55 | DI.US.S_ITS ---
MM diagnostic mammo unilat RT, US breast RT limited: 04/09/2025 BI-RADS: 3 CLINICAL: 54-year old female for right diagnostic mammogram and right diagnostic breast ultrasound that is a recall from screening on 03/11/2025. No Tyrer-Cuzick risk score calculation due to the patient's personal history of breast cancer. Patient reports a history of left breast carcinoma diagnosed at age 45. Status-post left mastectomy with chemotherapy. PRIOR EXAMS 03/11/2025, 01/04/2024, 03/12/2019, 05/07/2016, 01/29/2015. MAMMOGRAPHY TECHNIQUE: 2D and 3D (tomosynthesis) digital mammographic views obtained, with additional images as needed for full coverage. Current study was also evaluated with a Computer Aided Detection (CAD) system. ULTRASOUND TECHNIQUE Real-time balderas scale and color doppler imaging of the area of clinical interest was performed with image documentation. Exam is limited to the right axilla. DENSITY Right: C. The breast is heterogeneously dense, which may obscure small masses. MAMMOGRAPHY FINDINGS Right (finding-1): MLO only, Axilla: There are coarse heterogeneous and possibly dystrophic calcifications within two superficial fat containing masses measuring 0.9 cm and 0.4 cm in the right axilla. On comparison to the 05/07/2016 mammogram, there appears to be a fat containing 0.9 cm oval mass within the axilla at a similar location as the dominant mass with calcifications. Differential includes evolving fat necrosis versus calcifications within a lymph node. Visual inspection of the right axilla by the cytopathology technologist also revealed no skin changes or moles at the area of concern. Right: MLO only, Upper, Middle depth: The asymmetry seen on recent screening mammogram is less conspicuous with additional imaging and is consistent with superimposition of benign fibroglandular tissue. ULTRASOUND FINDINGS Right (finding-1): Axilla: There is no sonographic correlate for the mammographic finding. There are incidental benign appearing lymph nodes with normal hilar flow without definite calcifications in the right axilla. IMPRESSION: Right: MLO only, Axilla * Probably Benign. RECOMMENDATIONS Right: Axilla * Six month followup with diagnostic mammography and diagnostic ultrasound. Ultrasound to be performed only if needed (This finding is not amenable to image guided biopsy given the absence of a sonographic correlate. If definitive diagnosis is desired, consider further management per surgical consultation). COMMENTS: Findings and recommendations were conveyed to the patient during today's evaluation. Consider returning sooner for imaging if there is development of any clinically suspicious findings in the interim. OVERALL ASSESSMENT CATEGORY BI-RADS-3: Probably Benign. ELECTRONICALLY SIGNED: Rosalinda Hernandez M.D. on 04/10/2025 at 09:02:53 AM PT Interpreting Station ID: [id number]
== END ==
LOC: MAMMO 11:54
PROVIDERS: PCP Family Medicine; Referring Provider Family Medicine; Visit Provider Family Medicine
DX: R92.8 Other abnormal and inconclusive findings on diagnostic imaging of breast (principal); R92.331 Mammographic heterogeneous density, right breast; Z85.3 Personal history of malignant neoplasm of breast; Z90.12 Acquired absence of left breast and nipple
CPT/HCPCS: 76642; 77065; G0279